=== PATIENT | female | born 1980 | race Asian ===

== ENCOUNTER → 2017-06-01 | Day surgery (SDC) | payer BC ==
[2017-06-01 06:30] VITALS: BP 108/69; TEMP 98.3; BMI 27.1
--- NOTE | 2017-06-02 10:04 | PRG ---
DATE OF SERVICE: 06/01/2017 CHIEF COMPLAINT: Contractions. HISTORY OF PRESENT ILLNESS: At the time of presentation, Ms. Jacinto is a term primigravida of Dr. Vani Almaraz who presents with complaints of contractions. The patient denies any vaginal bleeding o r leakage of fluid and reports good movement. REVIEW OF SYSTEMS: Limited review of systems per HPI. HISTORY: Please see labor and delivery admission record included by reference. PHYSICAL EXAMINATION: VITAL SIGNS: Within normal limits. The patient is afebrile. GENERAL: Nontoxic appearing female in no acute distress. OBSTETRIC: heart tracing is category 1. Tocodynamometer shows contractions q.7-10 h minutes. GENITOURINARY: Cervix is fingertip and unchanged over 1-2 hours. ASSESSMENT AND PLAN: 1. Term intrauterine with category 1 tracing. 2. Prodromal labor. The patient is discharged to home with routine obstetric precaution.
== END ==
LOC: L&D/OP 05:49
PROVIDERS: ATTEND Family Medicine
DX: O47.9 False labor, unspecified (principal); Z3A.00 Weeks of gestation of pregnancy not specified; Z79.899 Other long term (current) drug therapy; Z88.8 Allergy status to other drugs, medicaments and biological substances
CPT/HCPCS: 99285

== ENCOUNTER 2017-06-02 10:36 | Inpatient (IN) | payer BC ==
[2017-06-02] MEDS ORDERED: Misoprostol 200 MCG TAB PR PRN (11:04)
[2017-06-02] MEDS ORDERED: Methylergonovine 0.2 MG/ML VIAL IM PRN (11:04)
[2017-06-02] MEDS ORDERED: Ondansetron HCl/PF 4 MG/2 ML Vial IVP PRN (11:04)
[2017-06-02] MEDS ORDERED: Promethazine HCl 25 MG/ML VIAL IM PRN (11:04)
[2017-06-02] MEDS ORDERED: Acetaminophen 500 MG TAB PO PRN (11:04)
[2017-06-02] MEDS ORDERED: LR / Pitocin 40 units/1000 ml 1,000 ML IV PRN (11:04)
[2017-06-02] MEDS ORDERED: Lidocaine 1% (PF) 30 ML VIAL SC PRN (11:04)
[2017-06-02] MEDS ORDERED: HYDROcodone/Acetaminophen 5/325 mg Tablet PO PRN ×4 (11:04→21:32)
[2017-06-02] MEDS ORDERED: Carboprost 250 MCG/ML AMP IM PRN (11:04)
[2017-06-02] MEDS ORDERED: Diphenoxylate HCl/Atropine Tablet PO PRN ×2 (11:04)
[2017-06-02] MEDS ORDERED: Ibuprofen 800 MG TAB PO PRN (11:04)
[2017-06-02 11:14] VITALS: BMI 27.1
[2017-06-02] MEDS ORDERED: Lactated Ringer's 1,000 ML IV SCH (11:15)
[2017-06-02 11:23] LABS: Mean Corpuscular HGB CONC 33.4 g/dL (32.0-36.0); Mean Corpuscular Hemoglobin 31.6 pg (27.0-31.0); Mean Corpuscular Volume 94.6 fl (81.0-99.0); Mean Platelet Volume 7.6 fL (7.4-10.4); Platelet Count 215 thou/uL (130-400); RBC Distribution Width 11.3 % (11.5-14.5); Red Blood Cell (RBC) Count 4.12 mill/uL (4.20-5.40); White Blood Cell (WBC) Count 13.8 thou/uL (4.8-10.8)
[2017-06-02 12:08] LABS: HBSAg Index 0.26 S/CO (0-0.99); Hep B Surf Ag Non-Reactive S/CO (NonReactive)
[2017-06-02 12:09] LABS: Syphilis Antibody Nonreactive (Nonreactive); Syphilis Antibody Index 0.04 S/CO (<1.00 Non-Reactive)
[2017-06-02] MEDS ORDERED: Bisacodyl 10 MG SUPP PR PRN (16:02)
[2017-06-02] MEDS ORDERED: LR / Pitocin 40 units/1000 ml 1,000 ML IV SCH (16:02)
[2017-06-02] MEDS ORDERED: Milk Of Magnesia 30 ML UDCUP PO PRN (16:02)
[2017-06-02] MEDS ORDERED: Lanolin Ointment 7 GM TUBE TOP PRN (16:02)
[2017-06-02] MEDS: Ferrous Sulfate 325 MG TAB PO SCH (17:38)
[2017-06-02] MEDS ORDERED: Benzocaine/Menthol 20-0.5% 60 ML CAN TOP PRN (21:30)
[2017-06-02] MEDS: Ibuprofen 800 MG TAB PO SCH (21:56)
[2017-06-02] MEDS: Docusate Calcium (SURFAK) 240 MG CAP PO SCH (21:56)
[2017-06-03] MEDS: Ibuprofen 800 MG TAB PO SCH ×3 (05:08→21:16)
[2017-06-03 05:44] LABS: Hemoglobin 10.1 g/dL (12.0-16.0); Mean Corpuscular HGB CONC 33.8 g/dL (32.0-36.0); Mean Corpuscular Hemoglobin 32.3 pg (27.0-31.0); Mean Corpuscular Volume 95.6 fl (81.0-99.0); Mean Platelet Volume 7.7 fL (7.4-10.4); Platelet Count 201 thou/uL (130-400); RBC Distribution Width 11.2 % (11.5-14.5); Red Blood Cell (RBC) Count 3.13 mill/uL (4.20-5.40); White Blood Cell (WBC) Count 11.6 thou/uL (4.8-10.8)
[2017-06-03] MEDS ORDERED: FLU VACC QS2017-18 36 mo. & older 0.5 ML SYRINGE IM ONE (09:00)
[2017-06-03] MEDS ORDERED: Adacel (T-DAP) 0.5 ML VIAL IM ONE (09:00)
[2017-06-03] MEDS: Docusate Calcium (SURFAK) 240 MG CAP PO SCH ×2 (09:35→21:17)
[2017-06-03] MEDS: Prenatal Vitamin 1 TAB PO SCH (09:35)
[2017-06-03] MEDS: Ferrous Sulfate 325 MG TAB PO SCH ×2 (09:35→17:19)
[2017-06-04] MEDS: Ibuprofen 800 MG TAB PO SCH (05:04)
[2017-06-04 08:54] VITALS: BP 111/65; TEMP 98.3
[2017-06-04] MEDS: Prenatal Vitamin 1 TAB PO SCH (09:18)
[2017-06-04] MEDS: Docusate Calcium (SURFAK) 240 MG CAP PO SCH (09:18)
[2017-06-04] MEDS: Ferrous Sulfate 325 MG TAB PO SCH (09:18)
== END 2017-06-04 12:40 | disposition home or self-care (01) | DRG 775 ==
LOC: L&D/OP 10:36 → L&D 11:14 → 3SW 16:03
PROVIDERS: ADMIT Internal Medicine Cardiovascular Disease; ATTEND Family Medicine
PROC: 10E0XZZ Delivery of Products of Conception, External Approach (ICD-10-PCS; principal; 2017-06-02)
DX: O70.1 Second degree perineal laceration during delivery (principal); Z37.0 Single live birth; Z3A.39 39 weeks gestation of pregnancy
CPT/HCPCS: 36415; 85027; 86780; 87340; 99285; J2210